=== PATIENT | female | born 1985 | race Two or more races ===

== ENCOUNTER 2023-08-27 10:03 | Inpatient (IN) | payer OTHER ==
[~2023-08-27] VITALS: Ht 170.2 cm; Wt 84.1 kg
[2023-08-27] MEDS ORDERED: 0.9% SODIUM CHLORIDE 10 ML SYRINGE IVP PRN (10:30)
[2023-08-27] MEDS: ONDANSETRON HCL 4 MG/2 ML VIAL IVP ONE (10:47)
[2023-08-27] MEDS: SODIUM CHLORIDE 0.9% 2,500 ML IV ONE (10:47)
[2023-08-27] MEDS: FAMOTIDINE 20 MG/2 ML VIAL IVP ONE (10:48)
[2023-08-27] MEDS: MORPHINE SULFATE 2 MG/ML SYRINGE IVP ONE ×2 (10:50→13:10)
[2023-08-27] MEDS: ACETAMINOPHEN 1000 MG/ISO-OSM 100 ML IV ONE (10:51)
[2023-08-27 11:03] LABS: BASOPHILS % (AUTO) 0.2 % (0.0-2.0); EOSINOPHILS % (AUTO) 0.3 % (1.0-6.0); HEMOGLOBIN 11.7 g/dL (12.0-16.0); LYMPHOCYTES # (AUTO) 0.9 K/uL (1.0-4.8); LYMPHOCYTES % (AUTO) 6.1 % (22.0-44.0); MEAN CORPUSCULAR HEMOGLOBIN 30.4 pg (26.0-34.0); MEAN CORPUSCULAR HGB CONC 33.5 G/dL (31.0-37.0); MEAN CORPUSCULAR VOLUME 91 fL (80-100); MONOCYTES # (AUTO) 1.2 K/uL (0.1-1.0); PLATELET COUNT (AUTO) 259 K/uL (150-450); RED BLOOD CELL COUNT(AUTO) 3.85 MIL/uL (4.00-5.20); RED CELL DISTRIBUTION WIDTH 14.2 % (11.5-14.5); WHITE BLOOD COUNT (AUTO) 15.2 K/uL (4.5-11.0)
[2023-08-27 11:04] LABS: NEUTROPHILS % (AUTO) 85.4 % (40.0-70.0)
[2023-08-27 11:12] LABS: TROPONIN I-HIGH SENSITIVITY 6 ng/L (<51)
[2023-08-27 11:13] LABS: LACTIC ACID 0.7 mmol/L (0.4-2.0)
[2023-08-27 11:16] LABS: B-TYPE NATRIURETIC PEPTIDE 78 pg/mL (0-100)
[2023-08-27 11:19] LABS: ALANINE AMINOTRANSFERASE 15 U/L (12-78); ALBUMIN 2.3 g/dL (3.4-5.0); ALKALINE PHOSPHATASE 108 U/L (46-116); ANION GAP 14 mmol/L (8-16); ASPARTATE AMINOTRANSFERASE 17 U/L (15-37); BILIRUBIN,TOTAL 0.8 mg/dL (0.1-1.0); CARBON DIOXIDE 24 mmol/L (22-29); CHLORIDE 98 mmol/L (98-107); CREATINE KINASE, TOTAL ONLY 36 U/L (26-192); CREATININE 0.79 mg/dL (0.60-1.30); GLOMERULAR FILTR. RATE CALC > 60 mL/min (>60); GLUCOSE,RANDOM 113 mg/dL (70-110); HCG,QUANTITATIVE < 1 mIU/mL (0-6); LIPASE 30 U/L (16-77); SODIUM SERUM 136 mmol/L (136-145); TOTAL PROTEIN, SERUM 6.7 g/dL (6.4-8.2); UREA NITROGEN, BLOOD 10 mg/dL (7-18)
[2023-08-27 11:22] LABS: POTASSIUM 2.7 mmol/L (3.5-5.1)
[2023-08-27] MEDS ORDERED: SODIUM CHLORIDE 0.9% 100 ML ONE (11:37)
[2023-08-27] MEDS ORDERED: IOHEXOL 350 MG/ML 100 ML VIAL ONE (11:37)
[2023-08-27] MEDS: POTASSIUM CHL 10 MEQ/WATER 50 ML IV SCH (11:48)
[2023-08-27] MEDS: POTASSIUM CHLORIDE 20 MEQ ER TABLET PO ONE (11:48)
[2023-08-27 11:49] LABS: COVID AG,FIA SOURCE NASAL SWAB
[2023-08-27 12:17] LABS: INFLUENZA TYPE A NEGATIVE FOR TYPE A (NEGATIVE); INFLUENZA TYPE B NEGATIVE FOR TYPE B (NEGATIVE); SARS-COV2 (COVID) ANTIGEN,FIA Negative (Negative)
[2023-08-27 12:22] LABS: APPEARANCE,URINE HAZY (CLEAR); BILIRUBIN,URINE NEGATIVE (NEGATIVE); COLOR,URINE LIGHT YELLOW (YELLOW); GLUCOSE, URINE (UA) NEGATIVE (NEGATIVE); KETONES,URINE NEGATIVE (NEGATIVE); LEUKOCYTE ESTERASE ,URINE MODERATE (NEGATIVE); NITRATE,URINE NEGATIVE (NEGATIVE); OCCULT BLOOD,URINE NEGATIVE (NEGATIVE); PROTEIN,URINE TRACE mg/dL (NEGATIVE); UROBILINOGEN,URINE <=1.0 mg/dL (<=1.0)
[2023-08-27 12:27] LABS: RBC,URINE 0-2 /HPF (0-2)
[2023-08-27 12:28] LABS: BACTERIA,URINE Moderate /HPF (None Seen); SQUAMOUS EPITHELIAL CELL,UR Many /LPF (None Seen)
[2023-08-27] MEDS: CefTRIAXone 1 GM/DEXTROSE 50 ML IV ONE (12:46)
[2023-08-27] MEDS ORDERED: MAGNESIUM HYDROXIDE SUSPENSION 30 ML UDCUP PO PRN (15:30)
[2023-08-27] MEDS ORDERED: BISACODYL 10 MG RECTAL RECTAL SUPPOSITORY PR PRN (15:30)
[2023-08-27] MEDS ORDERED: ONDANSETRON HCL 4 MG/2 ML VIAL IVP PRN (15:30)
[2023-08-27] MEDS: HEPARIN SODIUM,PORCINE 5,000 UNITS/ML VIAL SQ SCH (15:41)
[2023-08-27] MEDS: POTASSIUM CHLORIDE 10% 40 MEQ/30 ML LIQUID UDCUP PO ONE (15:44)
[2023-08-27 17:41] VITALS: BP 164/103; PULSE 127; RESP 20; TEMP 99.1
[2023-08-27] MEDS: MORPHINE SULFATE 2 MG/ML SYRINGE IVP PRN (17:48)
[2023-08-27] MEDS ORDERED: INFLUENZA VIRUS VACCINE QVS 2023-24 (6MO+)/PF 60 MCG/0.5 ML SYRINGE IM. ONE (18:30)
[2023-08-27] MEDS: DOCUSATE SODIUM 100 MG CAPSULE PO SCH (20:13)
[2023-08-27] MEDS: ACETAMINOPHEN 500 MG TABLET PO ONE (20:13)
[2023-08-27] MEDS: HYDROCODONE/ACETAMINOPHEN 5-325 MG TABLET PO PRN (22:00)
[2023-08-27] MEDS: ZOLPIDEM TARTRATE 5 MG TABLET PO PRN (22:00)
[2023-08-28 00:10] VITALS: BP 131/67; PULSE 114; RESP 18; TEMP 99
[2023-08-28 05:00] VITALS: BP 146/90; PULSE 124; RESP 18; TEMP 99.6
[2023-08-28] MEDS: ACETAMINOPHEN 325 MG TABLET PO PRN (05:02)
[2023-08-28 07:59] LABS: BASOPHILS % (AUTO) 0.3 % (0.0-2.0); EOSINOPHILS % (AUTO) 0.7 % (1.0-6.0); HEMATOCRIT 31.4 % (36-46); HEMOGLOBIN 10.6 g/dL (12.0-16.0); LYMPHOCYTES # (AUTO) 1.6 K/uL (1.0-4.8); LYMPHOCYTES % (AUTO) 15.2 % (22.0-44.0); MEAN CORPUSCULAR HGB CONC 33.7 G/dL (31.0-37.0); MEAN CORPUSCULAR VOLUME 92 fL (80-100); MONOCYTES # (AUTO) 1.2 K/uL (0.1-1.0); MONOCYTES % (AUTO) 11.5 % (2.0-9.0); NEUTROPHILS # (AUTO) 7.6 K/uL (1.8-7.7); NEUTROPHILS % (AUTO) 72.3 % (40.0-70.0); PLATELET COUNT (AUTO) 262 K/uL (150-450); RED BLOOD CELL COUNT(AUTO) 3.41 MIL/uL (4.00-5.20); RED CELL DISTRIBUTION WIDTH 14.4 % (11.5-14.5); WHITE BLOOD COUNT (AUTO) 10.5 K/uL (4.5-11.0)
[2023-08-28 08:00] VITALS: BP 134/85; PULSE 100; RESP 20; TEMP 98.2
[2023-08-28 08:22] LABS: ANION GAP 9 mmol/L (8-16); CALCIUM, TOTAL 7.9 mg/dL (8.8-10.5); CARBON DIOXIDE 23 mmol/L (22-29); CHLORIDE 104 mmol/L (98-107); CREATININE 0.77 mg/dL (0.60-1.30); GLOMERULAR FILTR. RATE CALC > 60 mL/min (>60); GLUCOSE,RANDOM 95 mg/dL (70-110); SODIUM SERUM 136 mmol/L (136-145); UREA NITROGEN, BLOOD 6 mg/dL (7-18)
[2023-08-28 08:36] LABS: POTASSIUM 2.9 mmol/L (3.5-5.1)
[2023-08-28] MEDS ORDERED: SODIUM CHLORIDE 0.9% 500 ML IV ONE (09:01)
[2023-08-28] MEDS: POTASSIUM CHL 10 MEQ/WATER 50 ML IV PRN (09:15)
[2023-08-28] MEDS: PANTOPRAZOLE SODIUM 40 MG DR TABLET PO SCH (09:17)
[2023-08-28] MEDS: POTASSIUM CHLORIDE 20 MEQ ER TABLET PO ONE (13:24)
[2023-08-28] MEDS: CefTRIAXone 1 GM/DEXTROSE 50 ML IV SCH (13:28)
[2023-08-28] MEDS ORDERED: MELATONIN 5 MG TABLET PO PRN (13:45)
[2023-08-28] MEDS: SUMAtriptan SUCCINATE 25 MG TABLET PO PRN (16:29)
[2023-08-28 17:48] LABS: POTASSIUM 3.9 mmol/L (3.5-5.1)
[2023-08-28 19:30] VITALS: BP 143/98; PULSE 108; RESP 20; TEMP 98.6
[2023-08-29 03:45] VITALS: BP 138/71; PULSE 97; RESP 16; TEMP 97.8
[2023-08-29 07:58] LABS: BASOPHILS % (AUTO) 0.3 % (0.0-2.0); EOSINOPHILS % (AUTO) 2.4 % (1.0-6.0); HEMATOCRIT 32.3 % (36-46); HEMOGLOBIN 10.7 g/dL (12.0-16.0); LYMPHOCYTES # (AUTO) 2.4 K/uL (1.0-4.8); LYMPHOCYTES % (AUTO) 26.3 % (22.0-44.0); MEAN CORPUSCULAR HEMOGLOBIN 30.6 pg (26.0-34.0); MEAN CORPUSCULAR HGB CONC 33.2 G/dL (31.0-37.0); MEAN CORPUSCULAR VOLUME 92 fL (80-100); MONOCYTES % (AUTO) 10.9 % (2.0-9.0); NEUTROPHILS # (AUTO) 5.4 K/uL (1.8-7.7); NEUTROPHILS % (AUTO) 60.1 % (40.0-70.0); PLATELET COUNT (AUTO) 335 K/uL (150-450); RED CELL DISTRIBUTION WIDTH 14.6 % (11.5-14.5)
[2023-08-29 08:00] VITALS: BP 139/100; PULSE 97; RESP 17; TEMP 98.1
[2023-08-29 08:19] LABS: ANION GAP 10 mmol/L (8-16); CALCIUM, TOTAL 8.2 mg/dL (8.8-10.5); CARBON DIOXIDE 24 mmol/L (22-29); CHLORIDE 104 mmol/L (98-107); CREATININE 0.76 mg/dL (0.60-1.30); GLOMERULAR FILTR. RATE CALC > 60 mL/min (>60); GLUCOSE,RANDOM 84 mg/dL (70-110); POTASSIUM 3.3 mmol/L (3.5-5.1); SODIUM SERUM 138 mmol/L (136-145); UREA NITROGEN, BLOOD 8 mg/dL (7-18)
[2023-08-29] MEDS: POTASSIUM CHLORIDE 20 MEQ ER TABLET PO PRN (09:53)
== END 2023-08-29 12:50 | disposition left against medical advice (07) | DRG 720 ==
LOC: EMS 10:13 → 6S 15:41
PROVIDERS: ADMIT Internal Medicine; ATTEND Internal Medicine
DX: A41.50 Gram-negative sepsis, unspecified (principal); N12 Tubulo-interstitial nephritis, not specified as acute or chronic; D64.9 Anemia, unspecified; Z20.822 Contact with and (suspected) exposure to COVID-19; E87.6 Hypokalemia; G43.909 Migraine, unspecified, not intractable, without status migrainosus; I10 Essential (primary) hypertension; Z53.29 Procedure and treatment not carried out because of patient's decision for other reasons; K44.9 Diaphragmatic hernia without obstruction or gangrene; Z98.84 Bariatric surgery status; K52.9 Noninfective gastroenteritis and colitis, unspecified
CPT/HCPCS: 71045; 74177; 80048; 80053; 81001; 82550; 83605; 83690; 83735; 83880; 84132; 84145; 84484; 84702; 85025; 87040; 87077; 87086; 87186; 87205; 87804; 93005; 99291; J0131; J0696; J1644; J2270; J2405; J3480; J3490; J7030; J7040; J7050; Q9967; 36415-L1; 36415-TC